=== PATIENT | male | born 1965 | race Caucasian/White ===

== ENCOUNTER 2018-01-21 15:07 | Emergency (ER) | payer SELFPAY ==
[~2018-01-21] VITALS: Ht 167.6 cm; Wt 93.5 kg
[2018-01-21 16:23] VITALS: BP 98/67
== END 2018-01-21 16:23 | disposition home or self-care (01) ==
LOC: ED 15:07
DX: M54.2 Cervicalgia (principal); M54.9 Dorsalgia, unspecified; L02.811 Cutaneous abscess of head [any part, except face]; L65.8 Other specified nonscarring hair loss